=== PATIENT | male | born 1970 ===

== ENCOUNTER → 2019-05-26 | Emergency (ER) | payer SELFPAY ==
[~2019-05-26] MED LIST: ALBUTEROL SULFATE 5 MG/ML 20 ML NEB SOLN [BULK] NEB ONE; DiphenhydrAMINE HCL 25 MG CAPSULE ONE
== END | disposition home or self-care (01) ==
LOC: EMS 00:02 → EDBD 00:02
DX: R06.02 Shortness of breath (principal); Z53.21 Procedure and treatment not carried out due to patient leaving prior to being seen by health care provider